=== PATIENT | female | born 1970 | race Caucasian/White ===

== ENCOUNTER → 2024-06-25 | Outpatient (CLI) | payer BC, SELFPAY ==
[2024-06-25 11:59] LABS: Basophils # (Auto) 0.1 Thou/mm3 (0.0-0.2); Basophils % (Auto) 1 % (0-2.5); Eosinophils # (Auto) 0.1 Thou/mm3 (0.0-0.5); Eosinophils % (Auto) 1 % (0-10); Hematocrit 43.4 % (36.0-46.0); Hemoglobin 14.9 g/dL (12.0-16.0); Immature Granulocytes % (Auto) 0 % (0-0); Immature Granulocytes Auto 0.03 Thou/mm3 (0.00-0.00); Lymphocytes # (Auto) 2.4 Thou/mm3 (1.0-4.8); Lymphocytes % (Auto) 27 % (10-50); Mean Corpuscular HGB Conc 34.3 g/dl (31.0-37.0); Mean Corpuscular Hemoglobin 31.4 pg (25.0-35.0); Mean Corpuscular Volume 91 fL (80-100); Monocytes # (Auto) 0.8 Thou/mm3 (0.0-0.8); Monocytes % (Auto) 9 % (0-12); Neutrophils # (Auto) 5.6 Thou/mm3 (1.8-7.7); Neutrophils % (Auto) 62 % (37-80); Nucleated Red Blood Cell % 0 /100 WBC (0); Platelet Count 221 Thou/mm3 (140-440); RDW Standard Deviation 40.8 fL (36.4-46.3); Red Blood Count 4.75 Miln/mm3 (4.00-5.20)
[2024-06-25 12:22] LABS: T4 (Thyroxine) 8.5 mcg/dL (4.5-10.9)
[2024-06-25 12:23] LABS: Alanine Aminotransferase 14 U/L (10-49); Albumin, Serum 4.5 gm/dL (3.5-5.0); Alkaline Phosphatase 62 U/L (46-116); Anion Gap 7 (7-16); Aspartate Amino Transferase 15 U/L (0-34); BUN/Creatinine Ratio 20 Ratio (12-20); Bilirubin,Total 0.6 mg/dL (0.3-1.2); Blood Urea Nitrogen 18 mg/dL (9-23); Calcium 9.9 mg/dL (8.3-10.6); Calcium (Corrected) 9.9 mg/dL (8.5-10.1); Cardiac Risk Estimate 3.1 RATIO (3.7-5.6); Chloride 106 mMol/L (98-107); Cholesterol 262 mg/dL (132-200); Creatinine (Component) 0.9 mg/dL (0.6-1.3); Globulin 2.2 gm/dL (2.3-3.5); Glucose 80 mg/dL (74-106); HDL Cholesterol 84 mg/dL (40-60); LDL Cholesterol,Calculated 166 mg/dL (0-130); Osmolality,Calculated 278 (275-295); Potassium 4.3 mMol/L (3.4-5.1); Sodium 139 mMol/L (136-145); Thyroid Stimulating Hormone 0.69 uIU/mL (0.55-4.78); Total Protein 6.7 gm/dL (5.7-8.2); Triglycerides 61 mg/dL (30-150); eGFR > 60 See Note
== END | disposition home or self-care (01) ==
LOC: COPL 11:27
PROVIDERS: PCP Family Medicine; Referring Provider Family Medicine; Visit Provider Family Medicine
DX: E05.20 Thyrotoxicosis with toxic multinodular goiter without thyrotoxic crisis or storm (principal); I10 Essential (primary) hypertension; K21.9 Gastro-esophageal reflux disease without esophagitis
CPT/HCPCS: 36415; 80053; 80061; 84436; 84443; 85025

== ENCOUNTER → 2024-10-11 | Outpatient (CLI) | payer BC, SELFPAY ==
[2024-10-11 11:57] LABS: T4 (Thyroxine) 8.7 mcg/dL (4.5-10.9)
[2024-10-11 11:59] LABS: Alanine Aminotransferase 27 U/L (10-49); Albumin, Serum 4.6 gm/dL (3.5-5.0); Albumin/Globulin Ratio 1.8 (1.2-2.2); Alkaline Phosphatase 60 U/L (46-116); Anion Gap 5 (7-16); Aspartate Amino Transferase 22 U/L (0-34); BUN/Creatinine Ratio 9 Ratio (12-20); Bilirubin,Total 0.6 mg/dL (0.3-1.2); Blood Urea Nitrogen 8 mg/dL (9-23); Calcium 9.9 mg/dL (8.3-10.6); Calcium (Corrected) 9.9 mg/dL (8.5-10.1); Carbon Dioxide 30.7 mMol/L (20.0-31.0); Chloride 109 mMol/L (98-107); Creatinine (Component) 0.9 mg/dL (0.6-1.3); Globulin 2.6 gm/dL (2.3-3.5); Glucose 96 mg/dL (74-106); Osmolality,Calculated 287 (275-295); Potassium 4.7 mMol/L (3.4-5.1); Sodium 145 mMol/L (136-145); Thyroid Stimulating Hormone 1.65 uIU/mL (0.55-4.78); Total Protein 7.2 gm/dL (5.7-8.2); eGFR > 60 See Note
== END | disposition home or self-care (01) ==
LOC: COPL 10:38
PROVIDERS: PCP Family Medicine; Referring Provider Family Medicine; Visit Provider Family Medicine
DX: K21.9 Gastro-esophageal reflux disease without esophagitis (principal); E05.20 Thyrotoxicosis with toxic multinodular goiter without thyrotoxic crisis or storm; I10 Essential (primary) hypertension
CPT/HCPCS: 36415; 80053; 84436; 84443

== ENCOUNTER 2025-01-08 07:05 | Day surgery (SDC) | payer BC, SELFPAY ==
--- NOTE | 2025-01-04 07:00 | EKG_ITS ---
[facility] Test Date: 2025-01-04 Pat Name: ROXANN PERRY Department: Room: - Gender: Female Leadership Recruiter: JAMIL : 1970 Requested By: Niurka Hayes Order Number: [id number] Reading MD: Niurka Hayes Measurements Intervals [place] Rate: 53 P: 53 MA: 163 QRS: 56 QRSD: 85 T: 55 QT: 387 QTc: 365 Interpretive Statements SINUS BRADYCARDIA WITH SINUS ARRHYTHMIA POSSIBLE RIGHT VENTRICULAR CONDUCTION DELAY [RSR (QR) IN V1/V2] No previous ECG available for comparison /[id number]
[2025-01-04 11:27] VITALS: BMI 24.0
[2025-01-04 12:14] LABS: Basophils # (Auto) 0.0 Thou/mm3 (0.0-0.2); Basophils % (Auto) 1 % (0-2.5); Eosinophils # (Auto) 0.2 Thou/mm3 (0.0-0.5); Eosinophils % (Auto) 4 % (0-10); Hematocrit 42.6 % (36.0-46.0); Hemoglobin 14.4 g/dL (12.0-16.0); Immature Granulocytes Auto 0.03 Thou/mm3 (0.00-0.00); Lymphocytes # (Auto) 1.9 Thou/mm3 (1.0-4.8); Lymphocytes % (Auto) 31 % (10-50); Mean Corpuscular HGB Conc 33.8 g/dl (31.0-37.0); Mean Corpuscular Hemoglobin 31.3 pg (25.0-35.0); Mean Corpuscular Volume 93 fL (80-100); Monocytes # (Auto) 0.6 Thou/mm3 (0.0-0.8); Monocytes % (Auto) 10 % (0-12); Neutrophils # (Auto) 3.3 Thou/mm3 (1.8-7.7); Neutrophils % (Auto) 54 % (37-80); Nucleated Red Blood Cell # 0.00 Thou/mm3 (0.00-0.00); Nucleated Red Blood Cell % 0 /100 WBC (0); Platelet Count 192 Thou/mm3 (140-440); RDW Standard Deviation 40.4 fL (36.4-46.3); Red Blood Count 4.60 Miln/mm3 (4.00-5.20); White Blood Count 6.1 Thou/mm3 (3.6-11.0)
[2025-01-04 12:25] LABS: Alanine Aminotransferase 14 U/L (10-49); Albumin, Serum 4.4 gm/dL (3.5-5.0); Albumin/Globulin Ratio 2.1 (1.2-2.2); Alkaline Phosphatase 55 U/L (46-116); Anion Gap 5 (7-16); Aspartate Amino Transferase 19 U/L (0-34); BUN/Creatinine Ratio 11 Ratio (12-20); Bilirubin,Total 0.4 mg/dL (0.3-1.2); Blood Urea Nitrogen 9 mg/dL (9-23); Calcium 9.6 mg/dL (8.3-10.6); Calcium (Corrected) 9.6 mg/dL (8.5-10.1); Carbon Dioxide 30.6 mMol/L (20.0-31.0); Chloride 109 mMol/L (98-107); Creatinine (Component) 0.8 mg/dL (0.6-1.3); Estimated Creatinine Clearance 71.0 mL/min (>60); Globulin 2.1 gm/dL (2.3-3.5); Glucose 76 mg/dL (74-106); Osmolality,Calculated 286 (275-295); Potassium 4.1 mMol/L (3.4-5.1); Sodium 145 mMol/L (136-145); Total Protein 6.5 gm/dL (5.7-8.2); eGFR > 60 See Note
[2025-01-04 12:27] LABS: HCG,Qualitative Serum Negative
--- NOTE | 2025-01-07 13:57 | SUR.PREOP ---
Pt stated she has some heart valve problem, she was seen by Dr Ford 2013, the office did not have records, Pt stated she was fine and no cardiac problems.
[2025-01-08] VITALS (7 sets, daily range): BP systolic 105–122; BP diastolic 68–95; PULSE 64–83; RESP 13–20; TEMP 36.1–36.7; O2SAT 97–100; BMI 24.4
--- NOTE | 2025-01-08 07:32 | CHAP ---
Visited with patient giving comfort and prayer.
[2025-01-08] MEDS: RINGERS LACTATED 1000 ML 1,000 ML 20 ML IV (07:49)
--- NOTE | 2025-01-08 10:00 | ESOP_ITS ---
Date of Procedure 01/08/25 Pre Op Diagnosis Left wrist ganglion cyst Post Op Diagnosis Left wrist ganglion cyst Procedure Excision of ganglion cyst from left wrist Findings 2 cm ganglion cyst on the volar aspect of left wrist Procedure Description Patient brought into the operating room in supine position. After administration of general tracheal anesthesia, patient's left upper extremity prepped and draped in standard surgical manner. Patient was noted to have ganglion cyst on the volar aspect of left wrist. After administration of local anesthesia an approximately 2-1/2 cm incision was made and dissection was deepened into soft tissue. The cyst was circumferentially dissected off surrounding tissue and underlying tendons and followed up to the insertion site from underlying bone. The cyst was then excised. The wound was washed and irrigated. Hemostasis was adequate and satisfactory. Subcutaneous tissue closed with interrupted sutures using 3-0 Vicryl and incision was closed with 4- 0 Monocryl in subcuticular fashion. Dermabond and sterile pressure dressings applied. Patient tolerated procedure well. She was extubated, breathing spontaneously and without difficulty and was transferred to postanesthesia care in stable condition. Instruments, needles and sponge counts were reported to be correct x 2. Anesthesia GETA and local Pathology / specimen Other (Left wrist ganglion cyst) Estimated Blood Loss 2 Condition Stable Disposition PACU Surgeon Niurka Hayes MD Surgical Staff Operation Date: 01/08/25 09:30 Case Staff Anesthesiologist: Ruben Crowder RN First Assistant: Oralia Chappell
--- NOTE | 2025-01-08 10:09 | SUR.PHASEI ---
pt received from OR in recovery bay 6. pt asleep but responds to voice, breathing unlabored on 2l nc. v/s stable. pt dressing to left wrist cdi. report received from Joce DUKES and Ismael SEQUEIRA.
--- NOTE | 2025-01-08 10:22 | SUR.PHASEI ---
pt able to tolerate ice chips without difficulty swallowing or nausea/vomiting.
--- NOTE | 2025-01-08 11:03 | SUR.PHASEII ---
pt awake and alert, breathing unlabored on room air. v/s stable. pt dressing to left wrist cdi. pt able to ambulate to wheelchair with steady gait. d/c instructions given with father Trent in room, all questions answered. pt d/c via wheelchair with all belongings.
== END 2025-01-08 11:03 | disposition home or self-care (01) ==
PROVIDERS: Anesthesiology; PCP Family Medicine; Referring Provider Surgery; Visit Provider Surgery
PROC: (CPT 25111; principal; 2025-01-08 09:15)
DX: M67.432 Ganglion, left wrist (principal); Z01.810 Encounter for preprocedural cardiovascular examination; J45.909 Unspecified asthma, uncomplicated
CPT/HCPCS: 25111; 36415; 80053; 84703; 85025; 93005; A4649; J2250; J2405; J2704; J2765; J3010; J3490; J7120; J7999